=== PATIENT | female | born 2005 | race African-American/Black ===

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

== ENCOUNTER 2023-07-21 22:09 | Emergency (ER) | payer OTHER, SELFPAY ==
--- NOTE | ~2023-07-21 | CT_ITS ---
EXAMINATION: CT cervical spine wo con DATE: 07/21/2023 23:44 INDICATION: Head injury TECHNIQUE: Computed tomography (CT) of the cervical spine was performed without intravenous contrast. The dose-length product (DLP) was 495.75 mGy-cm. Automated exposure control and iterative reconstruc tion technique were employed. COMPARISON: None FINDINGS: No fracture, dislocation, or subluxation. The vertebral body heights, alignment, and interv ertebral disc spaces are normal. The paravertebral soft tissues are unremarkable. The odontoid proces s is intact. IMPRESSION: 1. No acute osseous abnormality. Reviewed, dictated and finalized at location F.
--- NOTE | ~2023-07-21 | CT_ITS ---
EXAMINATION: CT brain wo con INDICATION: Headache COMPARISON: None TECHNIQUE: Standard unenhanced head CT. The dose-length product (DLP) was 605.33 mGy-cm. The mA was a djusted according to patient size. Iterative reconstruction technique was employed. FINDINGS: No intracranial hemorrhage, acute infarction, or abnormal mass lesion. The ventricles are n ormal. No abnormal mass effect or midline shift. The beckham-white matter differentiation is normal. The basal cisterns are patent. The orbits are normal. The paranasal sinuses, mastoids and calvarium are normal. IMPRESSION: 1. No acute intracranial abnormality. Reviewed, dictated and finalized at location F.
[2023-07-21 22:12] VITALS: BP 150/88; PULSE 105; RESP 16; TEMP 36.6; O2SAT 100
[2023-07-21] MEDS: diphenhydrAMINE HCl INJ 50 MG/ML VIAL 25 MG IV PUSH (23:09)
[2023-07-21] MEDS: METOCLOPRAMIDE HCL INJ 10 MG/2 ML VIAL IV PUSH (23:09)
[2023-07-21] MEDS: SODIUM CHLORIDE 0.9% IV 1,000 ML 999 ML IV CONT (23:09)
--- NOTE | 2023-07-21 23:15 | ED.GENADULT ---
HPI - General Adult General Chief complaint: Fall Stated complaint: headache Time Seen by Provider: 07/21/23 22:24 Source: patient Mode of arrival: ambulatory Limitations: no limitations History of Present Illness HPI narrative: Patient is a 18-year-old female who presents to the ED with report of a head injury. Patient reports she slipped and fell getting out of the shower on Wednesday, hitting her head against the ground. She did not lose consciousness. Patient reports she has been having migraines and left-sided neck pain since then. She denies history of migraines. She has not tried anything for her pain. She also reports nausea, photophobia. She denies lightheadedness or dizziness. Denies vomiting. Denies vision changes. Patient's urine test was positive in the ED. Patient was informed of this. She did not know she was . This is her second . She states her last cycle was around 1 month ago. She is typically regular. She has not had any abdominal pain. She does have an [employer] that she can follow-up with. Related Data Allergies Allergy/AdvReac Type Severity Reaction Status Date / Time No Known Allergies Allergy Verified 07/21/23 22:57 Review of Systems Review of Systems: CONSTITUTIONAL: Denies fever, chills, or sweats. EYES: Denies visual changes. CARDIOVASCULAR: Denies chest pain. RESPIRATORY: Denies dyspnea. GASTROINTESTINAL: See HPI. MUSCULOSKELETAL: See HPI. NEUROLOGIC: See HPI. All systems reviewed & are unremarkable except as noted in HPI and below Exam Narrative: GENERAL: Well appearing, well-nourished, non-toxic, in no acute distress. HEAD: Normocephalic, atraumatic. EYES: PERRLA/EOMI, conjunctiva clear. NECK: Supple. No adenopathy, no masses. Mild bilateral paraspinal muscle tenderness, no significant midline spinal tenderness. RESPIRATORY: Airway patent, respirations nonlabored. Clear to auscultation bilaterally, no rales, rhonchi, wheezing. CARDIOVASCULAR: Regular rate and rhythm without murmurs, rubs, or gallops. Radial pulses 2+ and equal bilaterally. ABDOMINAL: Soft, nontender, nondistended, no hepatosplenomegaly. Normoactive BS. MUSCULOSKELETAL: Moves all extremities. Strength/ROM intact without gross deformities. No midline thoracic or lumbar spinal tenderness. SKIN: Warm, dry, normal color. No rashes. NEURO: A&O X3. Speech clear. Cranial nerves II-XII grossly intact. Steady gait. No ataxic movements. No focal deficits. PSYCHIATRIC: Appropriate mood and affect. Normal interaction. Course Vital Signs Vital signs: Vital Signs Temperature 97.9 F 07/21/23 22:12 Pulse Rate 105 H 07/21/23 22:12 Respiratory Rate 16 07/21/23 22:12 Blood Pressure 150/88 H 07/21/23 22:12 Pulse Oximetry 100 07/21/23 22:12 Oxygen Delivery Room Air 07/21/23 22:12 Temperature 97.9 F 07/21/23 22:12 Pulse Rate 84 07/22/23 00:38 Respiratory Rate 13 07/22/23 00:38 Blood Pressure 136/79 07/22/23 00:38 Pulse Oximetry 100 07/22/23 00:38 Oxygen Delivery Room Air 07/21/23 22:12 Medical Decision Making MDM Narrative Medical decision making narrative: Patient presented to ED 2 days status post head injury, complaining of headaches, neck pain. Patient had not tried anything for pain prior to arrival. Patient in no acute distress. No neurologic deficits. Will attempt partial migraine cocktail. CT scans of brain and cervical spine negative for acute findings. Discussed imaging findings with patient. She is feeling better with supportive therapy. Feels ready for discharge home at this time. Advised to continue Tylenol as needed. Return precautions discussed. Patient's bedside test was positive. She was updated on this. She initially reported to me if she was unaware she could be . G2, P1. Beta quant resulted at 128, consistent with very early . Patient denying any abdominal pain or vaginal bleeding. When I went t
[2023-07-22 00:38] VITALS: BP 136/79; PULSE 84; RESP 13; O2SAT 100
== END 2023-07-22 02:44 | disposition home or self-care (01) ==
PROVIDERS: Emergency Provider Physician Assistant; PCP Family Medicine
DX: S09.90XA Unspecified injury of head, initial encounter (principal); S16.1XXA Strain of muscle, fascia and tendon at neck level, initial encounter; Z32.01 Encounter for pregnancy test, result positive; W18.2XXA Fall in (into) shower or empty bathtub, initial encounter
CPT/HCPCS: 36415; 70450; 72125; 84702; 96361; 96374; 96375; 99284; J1200; J2765; J7030